=== PATIENT | female | born 1955 | race Hispanic/Latino ===

== ENCOUNTER 2017-03-01 08:47 | Outpatient (CLI) | payer OTHER ==
--- NOTE | 2017-03-01 15:06 | Mammography Report ---
BONE DEXA:03/01/17 08:47:00 CLINICAL: Postmenopausal. COMPARISON: 01/30/15 and 12/06/12 TECHNIQUE: Two site bone DEXA performed on an Hologic scanner. FINDINGS: The average BMD of the lumbar spine L1-L4 is 0.719g/cm squared with a T-score of -3.0 and a Z-score of -1.3. This compares to 0.746g/cm squared on the last exam and represents a -3.6% change from the previous exam and a -8.0% change from baseline. The average BMD of the left hip is 0.703g/cm squared with a T-score of -2.0 and a Z-score of -0.8. This compares to 0.864g/cm squared on the last exam and represents a -18.7% change from the previous study and a -4.1% change from baseline. IMPRESSION: 1. WHO classification: Osteoporosis with high fracture risk based on spine measurements. 2. WHO classification: Osteopenia with increase fracture risk based on left hip measurements. 3. A modest decline in spine BMD compared to the previous exam but a marked decline in left hip BMD compared to the previous exam. RECOMMENDATION: Clinical correlation and routine screening. DEFINITIONS: BMD = Bone Mineral Density T-score = BMD related to mean peak bone mass of young adult (mean expressed in Standard Deviation) Z-score = Age matched BMD expressed in SD World Health Organization (WHO) Diagnostic Criteria Normal T-score > -1 SD Osteopenia T-score between -1 and -2.4 SD Osteoporosis T-score -2.5 SD or below NOTE: BMD is not the only risk factor for fracture; also consider factors such as the patient's age, risk of falling, previous osteoporotic fracture, family history of osteoporotic fractures, current smoker, and low body weight. Z-scores are not calculated if >80 years of age.
--- NOTE | 2017-03-01 15:29 | Mammography Report ---
BILATERAL DIGITAL SCREENING MAMMOGRAM with CAD: 03/01/17 08:47:00 CLINICAL: Routine screening. COMPARISON:02/19/16 FINDINGS: The breasts are heterogeneously dense, which may obscure small masses. No mass, architectural distortion or suspicious calcifications. IMPRESSION: No mammographic evidence of malignancy. BI-RADS CATEGORY: 1 - - Negative RECOMMENDATION: Routine mammographic screening in one year. COMMENT: Patient follow-up letters are generated by our [employer] application.
== END 2017-03-01 08:48 | disposition home or self-care (01) ==
LOC: SPVWC 08:47
PROVIDERS: ATTEND Obstetrics & Gynecology
DX: Z12.31 Encounter for screening mammogram for malignant neoplasm of breast (principal); M81.0 Age-related osteoporosis without current pathological fracture; M85.88 Other specified disorders of bone density and structure, other site; Z78.0 Asymptomatic menopausal state
CPT/HCPCS: 77080; G0202; 77067

== ENCOUNTER 2018-03-16 08:40 | Outpatient (CLI) | payer OTHER ==
--- NOTE | 2018-03-16 16:35 | Mammography Report ---
BILATERAL DIGITAL SCREENING MAMMOGRAM with CAD :03/16/18 08:40:00 CLINICAL: Routine screening. COMPARISON:03/01/17 FINDINGS: The breasts are extremely dense, which lowers the sensitivity of mammography. No mass, architectural distortion or suspicious calcifications. IMPRESSION: No mammographic evidence of malignancy. BI-RADS CATEGORY: 2--Benign RECOMMENDATION: Routine mammographic screening in one year. ACR BI-RADS MAMMOGRAPHIC CODES: 0 = Needs additional imaging evaluation; 1 = Negative; 2 = Benign; 3 = Probably benign; 4 = Suspicious; 5 = Malignant; 6 = Known biopsy-proven malignancy COMMENT: 1. Dense breast tissue, i.e., adenosis, fibrocystic changes, etc., may obscure an underlying neoplasm. 2. Approximately 10% of cancers are not detected with mammography. 3. A negative mammography report should not delay biopsy if a clinically suspicious mass is present. Patient follow-up letters are generated by our [employer] application.
== END 2018-03-16 08:41 | disposition home or self-care (01) ==
LOC: SPVWC 08:40
PROVIDERS: ATTEND Obstetrics & Gynecology
DX: Z12.31 Encounter for screening mammogram for malignant neoplasm of breast (principal)
CPT/HCPCS: 77067

== ENCOUNTER 2019-07-12 13:55 | Outpatient (CLI) | payer MEDICARE ==
--- NOTE | 2019-07-15 13:39 | Mammography Report ---
DIGITAL SCREENING MAMMOGRAM WITH CAD, 07/12/2019 INDICATION: Routine screening mammography. TECHNIQUE: Digital bilateral 2D mammography was obtained in the craniocaudal and mediolateral obliq ue projections. This examination was interpreted with the benefit of Computer-Aided Detection analysi s. COMPARISON: 03/16/2018 FINDINGS: Breast Density: The breasts are heterogeneously dense, which may obscure small masses. There is no evidence of dominant mass, suspicious calcifications or architectural distortion in eithe r breast. IMPRESSION: No mammographic evidence of malignancy. Follow up recommendation: Routine yearly BI-RADS Category 2: Benign. A "normal" or negative report should not discourage follow up or biopsy of a clinically significant f inding. A written summary of these findings will be mailed to the patient. The patient will be entered into a mammography reporting system which will generate a reminder letter for the patient's next appointmen t at the appropriate interval. The [employer] recommends yearly mammograms starting at age 40 and continuing as l maxine as a woman is in good health. Breast MRI is recommended for women with an approximate 20-25% or greater lifetime risk of breast cancer, including women with a strong family history of breast or ova stefany cancer or who have been treated for Hodgkin's disease. Signer Name: Prem Montez MD Signed: 07/15/2019 1:35 PM Workstation Name: [id number]
--- NOTE | 2019-07-15 14:06 | Mammography Report ---
BONE DEXA CLINICAL: Postmenopausal. COMPARISON: 03/01/2017 TECHNIQUE: 2 site bone DEXA performed on an Hologic scanner. FINDINGS: The average BMD of the lumbar spine L1-L4 is 0.766g/cm squared with a T score of -2.6 and a Z score o f -0.7. This compares to 0.719g/cm squared on the last exam and represents a +6.6 % change from the [ previous baseline]. The average BMD of the left hip is 0.723 g/cm squared with a T score of -1.8and a Z score of -0.5. Th is compares to 0.703 g/cm squared on the last exam and represents a +2.9 % change from the [previous baseline]. IMPRESSION: 1. WHO classification: Osteoporosis with high fracture risk based on spine measurements. However, a m oderate improvement in spine BMD compared to the last exam. 2. WHO classification Osteopenia with increased fracture risk based on left hip measurements. A more modest improvement in left hip BMD compared to the last exam. RECOMMENDATION: Clinical correlation and routine screening. Definitions: BMD equal bone mineral density T score = BMD related to peak bone mass of young adult ([place] expressed an standard deviation) Z score = age-matched BMD expressed in SD World health organization (WHO) diagnostic criteria Normal T score greater than equal to 1 standard deviation Osteopenia T score between -1 and -2.4 standard deviation Osteoporosis T score -2.5 standard deviation or below. Note: BMD is not the only risk factor for fracture; also consider factors such as the patient's age, risk of falling, previous osteoporotic fracture, family history of osteoporotic fractures, current sm oker and low body weight. Z scores are not calculated if greater than 80 years of age. Signer Name: Prem Montez MD Signed: 07/15/2019 2:02 PM Workstation Name: [id number]
== END 2019-07-12 13:56 | disposition home or self-care (01) ==
LOC: SPVWC 13:55
PROVIDERS: ATTEND Obstetrics & Gynecology
DX: Z12.31 Encounter for screening mammogram for malignant neoplasm of breast (principal); M81.0 Age-related osteoporosis without current pathological fracture
CPT/HCPCS: 77067; 77080

== ENCOUNTER 2020-12-09 09:33 | Outpatient (CLI) | payer MEDICARE ==
--- NOTE | 2020-12-09 14:12 | Mammography Report ---
DIGITAL SCREENING MAMMOGRAM WITH CAD, 12/09/2020 CLINICAL INFORMATION / INDICATION: Routine screening mammography. SCREENING MAMMO TECHNIQUE: Digital bilateral 2D mammography was obtained in the craniocaudal and mediolateral obliqu e projections. This examination was interpreted with the benefit of Computer-Aided Detection analysis . COMPARISON: 07/12/19 FINDINGS: Breast Density: The breasts are extremely dense, which lowers the sensitivity of mammography. No dominant mass, suspicious calcifications, or architectural distortion in either breast. IMPRESSION: No mammographic evidence of malignancy. Follow up recommendation: Routine yearly BI-RADS Category 1: Negative. A "normal" or negative report should not discourage follow up or biopsy of a clinically significant f inding. A written summary of these findings will be mailed to the patient. The patient will be entered into a mammography reporting system which will generate a reminder letter for the patient's next appointmen t at the appropriate interval. The [employer] recommends yearly mammograms starting at age 40 and continuing as l maxine as a woman is in good health. Breast MRI is recommended for women with an approximate 20-25% or greater lifetime risk of breast cancer, including women with a strong family history of breast or ova stefany cancer or who have been treated for Hodgkin's disease. Signer Name: Zeus Collier MD Signed: 12/09/2020 12:18 PM Workstation Name: [id number]
== END 2020-12-09 09:34 | disposition home or self-care (01) ==
LOC: SPVWC 09:33
PROVIDERS: ATTEND Obstetrics & Gynecology
DX: Z12.31 Encounter for screening mammogram for malignant neoplasm of breast (principal)
CPT/HCPCS: 77067

== ENCOUNTER 2022-01-04 13:29 | Outpatient (CLI) | payer MEDICARE ==
--- NOTE | 2022-01-05 10:33 | Mammography Report ---
DEXA BONE DENSITY SCAN INDICATION / CLINICAL INFORMATION: M81.0 AGE RELATED OSTEOPOROSIS. 66 years Female COMPARISON: 07/12/2019 LUMBAR SPINE, L1-L4: - Bone mineral density (BMD) = 0.754 g/cm2. - T-score = -2.7 - Change (%) since most recent prior (if available): -1.6 LEFT HIP, NECK : - Bone mineral density (BMD) = 0.603 g/cm2. - T-score = -2.2 - Change (%) since most recent prior (if available): +2.5 IMPRESSION: 1. WHO Classification: Osteoporosis. Fracture Risk: High. 2. 10-Year Fracture Risk (FRAX) = Major Osteoporotic Not reported.% / Hip: Not reported.% FRAX generally not reported for patients with normal or osteoporotic BMD, in kcy-rzdaivr-umnzkru bouchra ents younger than age 50, or in patients undergoing pharmacotherapy BMD Reporting Guidelines (ISCD, 2015) BMD Reporting in Postmenopausal Women and in Men Age 50 and Older - T-scores are preferred. - The WHO densitometric classification is applicable. BMD Reporting in Females Prior to Menopause and in Males Younger Than Age 50 - Z-scores, not T-scores, are preferred. This is particularly important in children. - A Z-score of -2.0 or lower is defined as below the expected range for age, and a Z-score above -2.0 is within the expected range for age. - Osteoporosis cannot be diagnosed in men under age 50 on the basis of BMD alone. - The WHO diagnostic criteria may be applied to women in the menopausal transition. http://www.iscd.org/official-positions/3683-kxiv-ukzvekdo-positions-adult/ Signer Name: Rui Cruz MD Signed: 01/05/2022 10:28 AM Workstation Name: [id number]
--- NOTE | 2022-01-06 09:14 | Mammography Report ---
DIGITAL SCREENING MAMMOGRAM WITH CAD, 01/04/2022 CLINICAL INFORMATION / INDICATION: Routine screening mammography. SCREENING MAMMO Z12.31 TECHNIQUE: Digital bilateral 2D mammography was obtained in the craniocaudal and mediolateral obliqu e projections. This examination was interpreted with the benefit of Computer-Aided Detection analysis . COMPARISON: 12/09/2020. FINDINGS: Breast Density: The breasts are extremely dense, which lowers the sensitivity of mammography. No dominant mass, suspicious calcifications, or architectural distortion in either breast. IMPRESSION: No mammographic evidence of malignancy. Follow up recommendation: Routine yearly screening mammogram. BI-RADS Category 1: NEGATIVE A "normal" or negative report should not discourage follow up or biopsy of a clinically significant f inding. A written summary of these findings will be mailed to the patient. The patient will be entered into a mammography reporting system which will generate a reminder letter for the patient's next appointmen t at the appropriate interval. The [employer] recommends yearly mammograms starting at age 40 and continuing as l maxine as a woman is in good health. Breast MRI is recommended for women with an approximate 20-25% or greater lifetime risk of breast cancer, including women with a strong family history of breast or ova stefany cancer or who have been treated for Hodgkin's disease. Signer Name: Filipe Pearson MD Signed: 01/06/2022 9:09 AM Workstation Name: [id number]
== END 2022-01-04 13:30 | disposition home or self-care (01) ==
LOC: SPVWC 13:29
PROVIDERS: ATTEND Obstetrics & Gynecology
DX: Z12.31 Encounter for screening mammogram for malignant neoplasm of breast (principal); M81.0 Age-related osteoporosis without current pathological fracture
CPT/HCPCS: 77067; 77080